=== PATIENT | female | born 1935 | race Caucasian/White ===

== ENCOUNTER → 2021-12-25 | Outpatient (CLI) | payer MEDICARE, BC ==
[~2021-12-25] VITALS: Ht 149.9 cm; Wt 51.3 kg
[~2021-12-25] MED LIST: ASPI-1450 PO; BISA10SU11 PR; CARV3 PO; CYAN100T45 PO; DONE-51 PO; LISI-659 PO; MEMA10TA11 PO; PRAV20TA4 PO
[2021-12-25 14:32] VITALS: BP 114/50
== END | disposition home or self-care (01) ==
LOC: SRCNTR 09:53
PROVIDERS: ATTEND Internal Medicine
DX: I10 Essential (primary) hypertension (principal); E78.5 Hyperlipidemia, unspecified; E53.9 Vitamin B deficiency, unspecified; F03.90 Unspecified dementia, unspecified severity, without behavioral disturbance, psychotic disturbance, mood disturbance, and anxiety; Z95.0 Presence of cardiac pacemaker
CPT/HCPCS: G0463; Z7500

== ENCOUNTER 2022-11-26 16:55 | Inpatient (IN) | payer BC, MEDICARE ==
[~2022-11-26] VITALS: Ht 160 cm; Wt 52.2 kg
[2022-11-26] MEDS ORDERED: LISI-657 PO (17:13)
[2022-11-26] MEDS ORDERED: MEMA10TA11 PO (17:13)
[2022-11-26] MEDS ORDERED: DONE-51 PO (17:13)
[2022-11-26] MEDS ORDERED: ASPI-1450 PO (17:13)
[2022-11-26 21:28] LABS: APPEARANCE,URINE TURBID (CLEAR); BILIRUBIN,URINE NEGATIVE (NEGATIVE); GLUCOSE, URINE (UA) NEGATIVE (NEGATIVE); KETONES,URINE NEGATIVE (NEGATIVE); LEUKOCYTE ESTERASE ,URINE LARGE (NEGATIVE); NITRATE,URINE POSITIVE (NEGATIVE); OCCULT BLOOD,URINE TRACE (NEGATIVE); PROTEIN,URINE TRACE mg/dL (NEGATIVE); SPECIFIC GRAVITIY, URINE 1.021 (1.003-1.030); UROBILINOGEN,URINE <=1.0 mg/dL (<=1.0)
[2022-11-26 21:32] LABS: BACTERIA,URINE Moderate /HPF (None Seen); RBC,URINE 0-2 /HPF (0-2); SQUAMOUS EPITHELIAL CELL,UR Few /LPF (None Seen); WBC,URINE 51-100 /HPF (0-5)
[2022-11-26 22:27] LABS: BASOPHILS % (AUTO) 0.5 % (0.0-2.0); EOSINOPHILS % (AUTO) 4.4 % (1.0-6.0); HEMATOCRIT 39.3 % (36-46); HEMOGLOBIN 12.7 g/dL (12.0-16.0); LYMPHOCYTES # (AUTO) 2.3 K/uL (1.0-4.8); LYMPHOCYTES % (AUTO) 33.2 % (22.0-44.0); MEAN CORPUSCULAR HEMOGLOBIN 29.7 pg (26.0-34.0); MEAN CORPUSCULAR HGB CONC 32.2 G/dL (31.0-37.0); MEAN CORPUSCULAR VOLUME 92 fL (80-100); MONOCYTES # (AUTO) 0.6 K/uL (0.1-1.0); MONOCYTES % (AUTO) 8.6 % (2.0-9.0); NEUTROPHILS # (AUTO) 3.6 K/uL (1.8-7.7); NEUTROPHILS % (AUTO) 53.3 % (40.0-70.0); PLATELET COUNT (AUTO) 180 K/uL (150-450); RED BLOOD CELL COUNT(AUTO) 4.27 MIL/uL (4.00-5.20); RED CELL DISTRIBUTION WIDTH 12.9 % (11.5-14.5)
[2022-11-26 22:37] LABS: CALCIUM, TOTAL 9.4 mg/dL (8.8-10.5); CREATININE 1.22 mg/dL (0.60-1.30); POTASSIUM 4.1 mmol/L (3.5-5.1)
[2022-11-26 22:43] LABS: ALBUMIN 3.6 g/dL (3.4-5.0); BILIRUBIN,TOTAL 0.8 mg/dL (0.1-1.0); TOTAL PROTEIN, SERUM 7.9 g/dL (6.4-8.2)
[2022-11-26 22:49] LABS: LACTIC ACID 0.8 mmol/L (0.4-2.0)
[2022-11-26] MEDS ORDERED: CefTRIAXone 1 GM/DEXTROSE 50 ML IV ONE (23:45)
[2022-11-27] MEDS ORDERED: ONDANSETRON HCL 4 MG/2 ML VIAL IVP PRN ×2 (02:15)
[2022-11-27] MEDS ORDERED: SODIUM CHLORIDE 0.9% 1,000 ML IV ONE (02:15)
[2022-11-27] MEDS ORDERED: ACETAMINOPHEN 325 MG TABLET PO PRN ×2 (02:15)
[2022-11-27] MEDS ORDERED: 0.9% SODIUM CHLORIDE 10 ML SYRINGE IVP PRN (02:15)
[2022-11-27 05:34] VITALS: BP 193/79
[2022-11-27] MEDS ORDERED: PNEUMOCOCCAL VACCINE POLYVALENT 0.5 ML VIAL [PPSV23] IM. ONE (06:30)
[2022-11-27 08:02] VITALS: BP 177/74
[2022-11-27] MEDS: DOCUSATE SODIUM 100 MG CAPSULE PO SCH ×2 (08:06→20:18)
[2022-11-27] MEDS: AmLODIPine BESYLATE 10 MG TABLET PO SCH ×2 (08:06→09:00)
[2022-11-27] MEDS: MEMANTINE HCL 10 MG TABLET PO SCH ×2 (08:06→20:18)
[2022-11-27] MEDS: DONEPEZIL HCL 10 MG TABLET PO SCH (08:06)
[2022-11-27] MEDS: HEPARIN SODIUM,PORCINE 5,000 UNITS/ML VIAL SQ SCH ×3 (08:06→23:37)
[2022-11-27] MEDS: ASPIRIN 81 MG CHEWABLE TABLET PO SCH (08:06)
[2022-11-27] MEDS: LISINOPRIL 20 MG TABLET PO SCH (08:06)
[2022-11-27 11:52] VITALS: BP 148/66
[2022-11-27 15:25] VITALS: BP 142/55
[2022-11-27 19:27] VITALS: BP 143/67
[2022-11-27 23:01] VITALS: BP 125/56
[2022-11-27] MEDS: CefTRIAXone 1 GM/DEXTROSE 50 ML IV SCH (23:36)
[2022-11-28 04:30] VITALS: BP 137/71
[2022-11-28 07:32] LABS: BASOPHILS % (AUTO) 0.7 % (0.0-2.0); EOSINOPHILS % (AUTO) 4.5 % (1.0-6.0); HEMATOCRIT 37.9 % (36-46); HEMOGLOBIN 12.5 g/dL (12.0-16.0); LYMPHOCYTES # (AUTO) 1.5 K/uL (1.0-4.8); LYMPHOCYTES % (AUTO) 28.2 % (22.0-44.0); MEAN CORPUSCULAR HEMOGLOBIN 30.1 pg (26.0-34.0); MEAN CORPUSCULAR VOLUME 91 fL (80-100); MONOCYTES # (AUTO) 0.4 K/uL (0.1-1.0); NEUTROPHILS # (AUTO) 3.2 K/uL (1.8-7.7); NEUTROPHILS % (AUTO) 58.6 % (40.0-70.0); PLATELET COUNT (AUTO) 155 K/uL (150-450); RED BLOOD CELL COUNT(AUTO) 4.16 MIL/uL (4.00-5.20); RED CELL DISTRIBUTION WIDTH 13.1 % (11.5-14.5)
[2022-11-28 07:50] LABS: ALBUMIN 3.2 g/dL (3.4-5.0); BILIRUBIN,TOTAL 0.8 mg/dL (0.1-1.0); CALCIUM, TOTAL 8.8 mg/dL (8.8-10.5); CREATININE 1.02 mg/dL (0.60-1.30); POTASSIUM 3.9 mmol/L (3.5-5.1); TOTAL PROTEIN, SERUM 7.2 g/dL (6.4-8.2)
[2022-11-28 09:11] VITALS: BP 142/58
[2022-11-28] MEDS: AmLODIPine BESYLATE 10 MG TABLET PO SCH (09:28)
[2022-11-28] MEDS: ASPIRIN 81 MG CHEWABLE TABLET PO SCH (09:28)
[2022-11-28] MEDS: MEMANTINE HCL 10 MG TABLET PO SCH ×2 (09:28→21:33)
[2022-11-28] MEDS: DONEPEZIL HCL 10 MG TABLET PO SCH (09:28)
[2022-11-28] MEDS: LISINOPRIL 20 MG TABLET PO SCH (09:28)
[2022-11-28] MEDS: DOCUSATE SODIUM 100 MG CAPSULE PO SCH ×2 (09:28→21:00)
[2022-11-28] MEDS: HEPARIN SODIUM,PORCINE 5,000 UNITS/ML VIAL SQ SCH ×2 (09:28→17:13)
[2022-11-28 11:24] VITALS: BP 141/61
[2022-11-28] MEDS: LACTULOSE 20 GM/30 ML SOLUTION UDCUP PO PRN (13:02)
[2022-11-28 16:24] VITALS: BP 126/55
[2022-11-28 19:51] VITALS: BP 135/56
[2022-11-29 00:12] VITALS: BP 143/63
[2022-11-29] MEDS: CefTRIAXone 1 GM/DEXTROSE 50 ML IV SCH ×2 (00:16→23:58)
[2022-11-29] MEDS: HEPARIN SODIUM,PORCINE 5,000 UNITS/ML VIAL SQ SCH ×4 (00:16→23:58)
[2022-11-29 04:42] VITALS: BP 139/57
[2022-11-29] MEDS: MEMANTINE HCL 10 MG TABLET PO SCH ×2 (08:48→20:05)
[2022-11-29] MEDS: AmLODIPine BESYLATE 10 MG TABLET PO SCH (08:48)
[2022-11-29] MEDS: DONEPEZIL HCL 10 MG TABLET PO SCH (08:48)
[2022-11-29] MEDS: LISINOPRIL 20 MG TABLET PO SCH (08:48)
[2022-11-29] MEDS: ASPIRIN 81 MG CHEWABLE TABLET PO SCH (08:48)
[2022-11-29] MEDS: DOCUSATE SODIUM 100 MG CAPSULE PO SCH ×2 (08:49→20:05)
[2022-11-29 09:27] VITALS: BP 156/69
[2022-11-29 11:35] VITALS: BP 154/60
[2022-11-29 16:10] VITALS: BP 139/72
[2022-11-29 19:34] VITALS: BP_SYST 13; BP_SYST 133; BP_DIAS 60
[2022-11-30] VITALS (7 sets, daily range): BP systolic 121–162; BP diastolic 56–87
[2022-11-30] MEDS ORDERED: SODIUM CHLORIDE 0.9% 100 ML ONE
[2022-11-30] MEDS: DOCUSATE SODIUM 100 MG CAPSULE PO SCH ×2 (08:31→21:29)
[2022-11-30] MEDS: DONEPEZIL HCL 10 MG TABLET PO SCH (08:32)
[2022-11-30] MEDS: ASPIRIN 81 MG CHEWABLE TABLET PO SCH (08:32)
[2022-11-30] MEDS: AmLODIPine BESYLATE 10 MG TABLET PO SCH (08:32)
[2022-11-30] MEDS: MEMANTINE HCL 10 MG TABLET PO SCH ×2 (08:32→21:30)
[2022-11-30] MEDS: LISINOPRIL 20 MG TABLET PO SCH (08:33)
[2022-11-30] MEDS: HEPARIN SODIUM,PORCINE 5,000 UNITS/ML VIAL SQ SCH ×2 (08:33→17:08)
[2022-11-30] MEDS ORDERED: SODIUM CHLORIDE 0.9% 500 ML IV ONE (23:56)
[2022-12-01] MEDS: HEPARIN SODIUM,PORCINE 5,000 UNITS/ML VIAL SQ SCH ×4 (00:14→23:15)
[2022-12-01] MEDS: CefTRIAXone 1 GM/DEXTROSE 50 ML IV SCH ×2 (00:24→23:15)
[2022-12-01 04:42] VITALS: BP 125/53
[2022-12-01 07:58] VITALS: BP 148/73
[2022-12-01] MEDS: LISINOPRIL 20 MG TABLET PO SCH (09:44)
[2022-12-01] MEDS: DONEPEZIL HCL 10 MG TABLET PO SCH (09:44)
[2022-12-01] MEDS: DOCUSATE SODIUM 100 MG CAPSULE PO SCH ×2 (09:45→20:22)
[2022-12-01] MEDS: AmLODIPine BESYLATE 10 MG TABLET PO SCH (09:47)
[2022-12-01] MEDS: ASPIRIN 81 MG CHEWABLE TABLET PO SCH (09:48)
[2022-12-01] MEDS: MEMANTINE HCL 10 MG TABLET PO SCH ×2 (09:48→20:21)
[2022-12-01 15:44] VITALS: BP 132/67
[2022-12-01 20:33] VITALS: BP 135/68
[2022-12-02 05:01] VITALS: BP 104/51
[2022-12-02 08:00] VITALS: BP 131/58
[2022-12-02] MEDS: MEMANTINE HCL 10 MG TABLET PO SCH ×2 (08:40→20:50)
[2022-12-02] MEDS: LACTULOSE 20 GM/30 ML SOLUTION UDCUP PO PRN (08:40)
[2022-12-02] MEDS: DONEPEZIL HCL 10 MG TABLET PO SCH (08:41)
[2022-12-02] MEDS: LISINOPRIL 20 MG TABLET PO SCH (08:41)
[2022-12-02] MEDS: DOCUSATE SODIUM 100 MG CAPSULE PO SCH ×2 (08:41→20:50)
[2022-12-02] MEDS: ASPIRIN 81 MG CHEWABLE TABLET PO SCH (08:41)
[2022-12-02] MEDS: AmLODIPine BESYLATE 10 MG TABLET PO SCH (08:41)
[2022-12-02] MEDS: HEPARIN SODIUM,PORCINE 5,000 UNITS/ML VIAL SQ SCH ×4 (09:52→23:31)
[2022-12-02 15:22] VITALS: BP 124/60
[2022-12-02] MEDS: CEPHALEXIN MONOHYDRATE 500 MG CAPSULE PO SCH ×2 (16:34→20:50)
[2022-12-02 20:30] VITALS: BP 133/64
[2022-12-03 04:30] VITALS: BP 141/82
[2022-12-03 07:27] VITALS: BP 125/51
[2022-12-03] MEDS: ASPIRIN 81 MG CHEWABLE TABLET PO SCH (08:03)
[2022-12-03] MEDS: DOCUSATE SODIUM 100 MG CAPSULE PO SCH ×2 (08:03→20:28)
[2022-12-03] MEDS: LISINOPRIL 20 MG TABLET PO SCH (08:03)
[2022-12-03] MEDS: AmLODIPine BESYLATE 10 MG TABLET PO SCH (08:03)
[2022-12-03] MEDS: CEPHALEXIN MONOHYDRATE 500 MG CAPSULE PO SCH ×3 (08:04→20:28)
[2022-12-03] MEDS: MEMANTINE HCL 10 MG TABLET PO SCH ×2 (08:04→20:28)
[2022-12-03] MEDS: HEPARIN SODIUM,PORCINE 5,000 UNITS/ML VIAL SQ SCH ×3 (08:04→23:28)
[2022-12-03] MEDS: DONEPEZIL HCL 10 MG TABLET PO SCH (08:04)
[2022-12-03] MEDS ORDERED: AMLO-258 PO (11:42)
[2022-12-03] MEDS ORDERED: ACET-2247 PO (11:44)
[2022-12-03] MEDS ORDERED: LACT10SO10 PO (11:45)
[2022-12-03] MEDS ORDERED: CEFX2I IV (11:46)
[2022-12-03 21:14] VITALS: BP 138/80
[2022-12-04 05:00] VITALS: BP 132/82
[2022-12-04 07:20] VITALS: BP 128/84
[2022-12-04] MEDS: DOCUSATE SODIUM 100 MG CAPSULE PO SCH (08:30)
[2022-12-04] MEDS: CEPHALEXIN MONOHYDRATE 500 MG CAPSULE PO SCH ×2 (08:30→17:01)
[2022-12-04] MEDS: MEMANTINE HCL 10 MG TABLET PO SCH (08:30)
[2022-12-04] MEDS: ASPIRIN 81 MG CHEWABLE TABLET PO SCH (08:30)
[2022-12-04] MEDS: AmLODIPine BESYLATE 10 MG TABLET PO SCH (08:30)
[2022-12-04] MEDS: DONEPEZIL HCL 10 MG TABLET PO SCH (08:30)
[2022-12-04] MEDS: HEPARIN SODIUM,PORCINE 5,000 UNITS/ML VIAL SQ SCH ×2 (08:30→17:01)
[2022-12-04] MEDS: LISINOPRIL 20 MG TABLET PO SCH (08:37)
[2022-12-04] MEDS ORDERED: CEPH-558 PO (10:30)
[2022-12-04 15:49] VITALS: BP 119/60
== END 2022-12-04 19:08 | DRG 70 ==
LOC: EMS 17:19 → UNDOADMIN 11-27 01:30 → 5S 11-27 01:30 → 6S 11-30 19:00 → 6N 12-02 16:55
PROVIDERS: ADMIT Internal Medicine; ATTEND Internal Medicine
DX: G93.41 Metabolic encephalopathy (principal); E43 Unspecified severe protein-calorie malnutrition; N39.0 Urinary tract infection, site not specified; K80.20 Calculus of gallbladder without cholecystitis without obstruction; F03.90 Unspecified dementia, unspecified severity, without behavioral disturbance, psychotic disturbance, mood disturbance, and anxiety; I10 Essential (primary) hypertension; R41.89 Other symptoms and signs involving cognitive functions and awareness; R53.81 Other malaise; W18.39XA Other fall on same level, initial encounter; K59.00 Constipation, unspecified; R29.6 Repeated falls; Z79.82 Long term (current) use of aspirin; Z87.440 Personal history of urinary (tract) infections; Z90.710 Acquired absence of both cervix and uterus; Z95.0 Presence of cardiac pacemaker; Z74.01 Bed confinement status; Z79.899 Other long term (current) drug therapy; Z28.21 Immunization not carried out because of patient refusal; Z68.20 Body mass index [BMI] 20.0-20.9, adult; Y93.89 Activity, other specified; Y92.098 Other place in other non-institutional residence as the place of occurrence of the external cause; Y99.8 Other external cause status
CPT/HCPCS: 70450; 71045; 72125; 73503; 74176; 80053; 81001; 83605; 84484; 85025; 87040; 87086; 87186; 93005; 97116; 97163; 97166; 97530; 97535; 99285; J0696; J1644; J7030; J7040; J7050; 36415-L1; 36415-TC

== ENCOUNTER 2023-02-14 21:30 | Emergency (ER) | payer MEDICARE ==
[~2023-02-14] VITALS: Ht 147.3 cm; Wt 50.0 kg
[~2023-02-14 21:30] MED LIST changes: +ACET-2247 PO; +AMLO-258 PO; -BISA10SU11 PR; -CARV3 PO; +CEPH-558 PO; -CYAN100T45 PO; +LACT10SO10 PO; +LISI-657 PO; -LISI-659 PO; -PRAV20TA4 PO
[2023-02-14 23:41] VITALS: TEMP 98.6
[2023-02-15] MEDS ORDERED: LOPERAMIDE HCL 2 MG CAPSULE PO ONE
[2023-02-15 00:43] LABS: BASOPHILS % (AUTO) 0.2 % (0.0-2.0); HEMATOCRIT 30.8 % (36-46); HEMOGLOBIN 10.4 g/dL (12.0-16.0); LYMPHOCYTES # (AUTO) 1.8 K/uL (1.0-4.8); LYMPHOCYTES % (AUTO) 25.8 % (22.0-44.0); MEAN CORPUSCULAR HEMOGLOBIN 30.7 pg (26.0-34.0); MEAN CORPUSCULAR HGB CONC 33.8 G/dL (31.0-37.0); MEAN CORPUSCULAR VOLUME 91 fL (80-100); MONOCYTES # (AUTO) 0.7 K/uL (0.1-1.0); MONOCYTES % (AUTO) 10.4 % (2.0-9.0); NEUTROPHILS # (AUTO) 4.2 K/uL (1.8-7.7); NEUTROPHILS % (AUTO) 59.6 % (40.0-70.0); PLATELET COUNT (AUTO) 213 K/uL (150-450); RED BLOOD CELL COUNT(AUTO) 3.39 MIL/uL (4.00-5.20); RED CELL DISTRIBUTION WIDTH 13.1 % (11.5-14.5)
[2023-02-15 00:57] LABS: CALCIUM, TOTAL 9.1 mg/dL (8.8-10.5); CREATININE 1.1 mg/dL (0.60-1.30); POTASSIUM 3.5 mmol/L (3.5-5.1)
[2023-02-15 01:03] LABS: BILIRUBIN,TOTAL 0.7 mg/dL (0.1-1.0); TOTAL PROTEIN, SERUM 7.3 g/dL (6.4-8.2)
[2023-02-15] MEDS ORDERED: MELA5TAB40 PO (02:17)
[2023-02-15] MEDS ORDERED: LOPE-232 PO (02:17)
[2023-02-15] MEDS ORDERED: CARV6 PO (02:17)
[2023-02-15 02:51] LABS: APPEARANCE,URINE CLEAR (CLEAR); BILIRUBIN,URINE NEGATIVE (NEGATIVE); GLUCOSE, URINE (UA) NEGATIVE (NEGATIVE); KETONES,URINE NEGATIVE (NEGATIVE); LEUKOCYTE ESTERASE ,URINE LARGE (NEGATIVE); NITRATE,URINE POSITIVE (NEGATIVE); OCCULT BLOOD,URINE SMALL (NEGATIVE); PROTEIN,URINE NEGATIVE (NEGATIVE); SPECIFIC GRAVITIY, URINE 1.006 (1.003-1.030); UROBILINOGEN,URINE <=1.0 mg/dL (<=1.0)
[2023-02-15 03:26] LABS: RBC,URINE 0-2 /HPF (0-2)
[2023-02-15 03:27] LABS: BACTERIA,URINE Moderate /HPF (None Seen)
[2023-02-15] MEDS ORDERED: NITR-75 PO ×2 (03:27→03:49)
[2023-02-15 04:45] VITALS: BP 138/69; PULSE 65; RESP 18
== END 2023-02-15 04:52 | disposition home or self-care (01) ==
LOC: EMS 21:31
DX: R19.7 Diarrhea, unspecified (principal); R10.9 Unspecified abdominal pain; L30.9 Dermatitis, unspecified; N30.90 Cystitis, unspecified without hematuria; F03.90 Unspecified dementia, unspecified severity, without behavioral disturbance, psychotic disturbance, mood disturbance, and anxiety; I10 Essential (primary) hypertension; Z90.710 Acquired absence of both cervix and uterus; Z98.890 Other specified postprocedural states
CPT/HCPCS: 51701; 74176; 80053; 81001; 83690; 85025; 87086; 87186; 99284

== ENCOUNTER 2023-03-04 19:59 | Emergency (ER) | payer MEDICARE ==
[~2023-03-04] VITALS: Ht 160 cm; Wt 55.7 kg
[~2023-03-04 19:59] MED LIST changes: -AMLO-258 PO; +CARV6 PO; -CEPH-558 PO; +CIPR250T6 PO; -DONE-51 PO; -LACT10SO10 PO; -LISI-657 PO
[2023-03-04 23:53] LABS: BASOPHILS % (AUTO) 0.7 % (0.0-2.0); EOSINOPHILS % (AUTO) 3.7 % (1.0-6.0); HEMATOCRIT 35.7 % (36-46); HEMOGLOBIN 11.5 g/dL (12.0-16.0); LYMPHOCYTES # (AUTO) 1.4 K/uL (1.0-4.8); MEAN CORPUSCULAR HEMOGLOBIN 29.9 pg (26.0-34.0); MEAN CORPUSCULAR HGB CONC 32.2 G/dL (31.0-37.0); MEAN CORPUSCULAR VOLUME 93 fL (80-100); MONOCYTES # (AUTO) 0.6 K/uL (0.1-1.0); MONOCYTES % (AUTO) 9.1 % (2.0-9.0); NEUTROPHILS # (AUTO) 3.8 K/uL (1.8-7.7); NEUTROPHILS % (AUTO) 63.5 % (40.0-70.0); PLATELET COUNT (AUTO) 146 K/uL (150-450); RED BLOOD CELL COUNT(AUTO) 3.84 MIL/uL (4.00-5.20); RED CELL DISTRIBUTION WIDTH 14.2 % (11.5-14.5)
[2023-03-04 23:54] VITALS: TEMP 98.4
[2023-03-04 23:54] LABS: CALCIUM, TOTAL 9.1 mg/dL (8.8-10.5); CREATININE 1.11 mg/dL (0.60-1.30); POTASSIUM 3.2 mmol/L (3.5-5.1)
[2023-03-05] LABS: ALBUMIN 2.9 g/dL (3.4-5.0); BILIRUBIN,TOTAL 0.9 mg/dL (0.1-1.0); TOTAL PROTEIN, SERUM 7.3 g/dL (6.4-8.2)
[2023-03-05] MEDS ORDERED: POTASSIUM CHLORIDE 10% 40 MEQ/30 ML LIQUID UDCUP PO ONE (00:30)
[2023-03-05 03:05] VITALS: BP 150/87; PULSE 60; RESP 18
== END 2023-03-05 03:23 | disposition home or self-care (01) ==
LOC: EMS 20:00
DX: F03.90 Unspecified dementia, unspecified severity, without behavioral disturbance, psychotic disturbance, mood disturbance, and anxiety (principal); I10 Essential (primary) hypertension; Z90.710 Acquired absence of both cervix and uterus; Z87.19 Personal history of other diseases of the digestive system; Z98.890 Other specified postprocedural states; W18.30XA Fall on same level, unspecified, initial encounter; Y93.89 Activity, other specified; Y92.89 Other specified places as the place of occurrence of the external cause; Y99.8 Other external cause status
CPT/HCPCS: 72170; 80053; 83690; 84484; 85025; 99284